=== PATIENT | male | born 1980 | race Caucasian/White ===

== ENCOUNTER 2020-03-23 08:22 | Emergency (ER) | payer BC ==
--- NOTE | 2020-03-23 08:48 | EDM.PDOC ---
ED HPI GENERAL MEDICAL PROBLEM - General Chief Complaint: Skin Complaint Stated Complaint: ? CELLULITIS Time Seen by Provider: 03/23/20 08:48 Source of Information: Reports: Patient History Limitations: Reports: No Limitations - History of Present Illness INITIAL COMMENTS - FREE TEXT/NARRATIVE: Michael, 39-year-old male, noticed significant increase in warmth and swelling to the right calf clayton region today when returning home from work. Works night shifts at [employer], stating he has been working more hours than usual. 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 Has history of chronic cellulitis/wound involvement which he is actively treated and is scheduled for Wednesday at the wound clinic in [facility]. Primary provider Teri Du at the [facility] in [place] He states being on his feet increased amount is likely contributing to this as well. Wound measurements today show significant increase in comparison of 6 cm to which he states if his recall is correct, 51 cm's were both calves measured circumferential on his last visit. He denies any other contributing factors, he is feeling well in general other than this likely cellulitis of the right calf and clayton. Onset: Gradual Duration: Hour(s):, Day(s): Location: Reports: Lower Extremity, Right Quality: Reports: Burning, Pressure Severity: Moderate Improves with: Reports: None Worsens with: Reports: Movement Context: Reports: Activity Associated Symptoms: Reports: No Other Symptoms Right Leg Pain Score (Numeric/FACES): 2 - Related Data Allergies Allergy/AdvReac Type Severity Reaction Status Date / Time No Known Allergies Allergy Verified 03/23/20 08:54 Home Meds: Home Meds Apixaban [Eliquis] 2.5 mg PO BID 03/23/20 [History] Fluticasone/Salmeterol [Advair 100-50] 1 puff INH BID 03/23/20 [History] cephALEXin [Keflex] 500 mg PO TID 7 Days #21 capsule 03/23/20 [Rx] Past Medical History HEENT History: Reports: None Cardiovascular History: Reports: Blood Clots/VTE/DVT Respiratory History: Reports: Asthma, PE Neurological History: Reports: None Dermatologic History: Reports: Cellulitis - Past Imaging History Past Imaging History: Reports: CAT Scan, Ultrasound, Venous Doppler, Xray Social & Family History - Family History Family Medical History: Noncontributory - Caffeine Use Caffeine Use: Reports: Soda ED ROS GENERAL - Review of Systems Review Of Systems: See Below Constitutional: Reports: No Symptoms HEENT: Reports: No Symptoms Respiratory: Reports: No Symptoms Cardiovascular: Reports: No Symptoms Endocrine: Reports: No Symptoms GI/Abdominal: Reports: No Symptoms : Reports: No Symptoms Musculoskeletal: Reports: Leg Pain Skin: Reports: Rash, Erythema, Wound, Change in Color Neurological: Reports: No Symptoms Hematologic/Lymphatic: Reports: No Symptoms Immunologic: Reports: No Symptoms ED EXAM, GENERAL - Physical Exam Exam: See Below Free Text/Narrative:: Alert, oriented, in no acute distress. HEENT negative discharge or deformity. Thorax is clear Cardiac regular somewhat distant heart sounds. Focused examination to the lower extremities show a left lower extremity with no apparent compromise, erythema, nor pain. Circumference of the calf 51 cm Right lower extremity shows erythematous skin, warm to touch, there is areas of what appear to be venous stasis involvement and a fresh dressing applied to the posterior medial calf of which she is seeing wound care in [facility]. This calf measures 57 cm. There is no drainage. There is no pitting edema the dorsum of the foot is not involved with warm dry skin. Pressure sensation is noted to what he attributes similar to previous cellulitis event. Course - Vital Signs Last Recorded V/S: Last Vital Signs Temp 36.2 C 03/23/20 08:45 Pulse 87 03/23/20 08:45 Resp 20 03/23/20 08:45 BP 157/71 H 03/23/20 08:45 Pulse Ox 96 03/23/20 08:45 - Orders/Labs/Meds Labs: Laboratory Tests 03/23/20 03/23/20 Range/Units 08:43 08:43 WBC 8.53 (5.00-10.00) 10^3/uL RBC 5.26 (4.50-6.00) 10^6/uL Hgb 13.6 (13.0-17.0) g/dL Hct 42.9 (40.0-52.0) % MCV 81.6 L (82.0-92.0) fL MCH 25.9 L (27.0-31.0) pg MCHC 31.7 L (32.0-36.0) g/dL RDW 15.7 H (11.5-14.5) % Plt Count 207 (150-400) 10^3/uL MPV 10.1 (7.4-10.4) fL Immature Gran % (Auto) 0.4 (0.0-5.0) % Neut % (Auto) 76.8 H (50.0-70.0) % Lymph % (Auto) 14.0 L (20.0-40.0) % Ripley % (Auto) 6.1 (2.0-8.0) % Eos % (Auto) 2.3 (1.0-3.0) % Baso % (Auto) 0.4 (0.0-1.0) % Neut # (Auto) 6.56 (2.50-7.00) 10^3/uL Lymph # (Auto) 1.19 (1.00-4.00) 10^3/uL Ripley # (Auto) 0.52 (0.10-0.80) 10^3/uL Eos # (Auto) 0.20 (0.10-0.30) 10^3/uL Baso # (Auto) 0.03 (0.00-0.10) 10^3/uL Immature Gran # (Auto) 0.03 (0.00-0.50) 10^3/uL Sodium 139 (136-145) mmol/L Potassium 3.8 (3.3-5.3) mmol/L Chloride 101 (98-115) mmol/L Carbon Dioxide 28.3 (21.0-32.0) mmol/L Anion Gap 13.5 (5-15) mmol/L BUN 12 (6-25) mg/dL Creatinine 0.63 (0.51-1.17) mg/dL Est Cr Clr Drug Dosing 157.42 mL/min Estimated GFR (MDRD) > 60 mL/min Glucose 102 H (75 - 99) mg/dL Calcium 8.6 L (8.7-10.3) mg/dL Total Bilirubin 0.7 (0.2-1.0) mg/dL AST 16 (15-37) U/L ALT 31 (12-78) U/L Alkaline Phosphatase 88 (46-116) IU/L Total Protein 7.8 (6.4-8.2) g/dL Albumin 4.09 (3.00-4.80) g/dL Meds: Medications Discontinued Medications Generic Name Dose Route Start Last Admin Trade Name Enoch PRN Reason Stop Dose Admin Ceftriaxone Sodium 2 gm 03/23/20 08:53 03/23/20 09:06 Rocephin IVPUSH 03/23/20 08:54 2 gm ONETIME ONE Administration - Re-Assessments/Exams Free Text/Narrative Re-Assessment/Exam: 03/23/20 09:44 After reviewing laboratory analysis discussed with Michael, options for treatment, offering return for outpatient cephalexin tomorrow until he can contact clinic on Wednesday, or oral cephalexin. He feels comfortable switching to an oral medication after the initial dosing here in the emergency department today. Given work excuse so he may remain at home with elevation as discussed. Departure - Departure Time of Disposition: 09:26 Disposition: Home, Self-Care 01 Condition: Good Clinical Impression: Cellulitis, Cellulitis of right lower leg, Edema - Discharge Information *PRESCRIPTION DRUG MONITORING PROGRAM REVIEWED*: Not Applicable *COPY OF PRESCRIPTION DRUG MONITORING REPORT IN PATIENT STEFF: Not Applicable Instructions: Cellulitis, Adult Referrals: Teri Du TAX REPRESENTATIVE [Primary Care Provider] - Forms: ED Department Discharge, ED Return to Work/School Form Additional Instructions: 2 g Rocephin administered IV here. Is willing to switch to cephalexin for the remainder of 1 week treatment. Prescription sent to [facility]. Elevate your leg for at least 20 to 30 minutes every 1-2 hours to control swelling and promote circulation. Continue your medications as directed. Wound clinic and primary care provider this coming and Wednesday as scheduled. No work until after wound clinic visit on the . Contact us or return if worsening symptoms over the weekend. Sepsis Event Note (ED) - Focused Exam Vital Signs: Vital Signs Temp Pulse Resp BP Pulse Ox 03/23/20 08:45 36.2 C 87 20 157/71 H 96 - Problem List & Annotations (1) Cellulitis of right lower leg SNOMED Code(s): 017971660 Code(s): L03.115 - CELLULITIS OF RIGHT LOWER LIMB Status: Acute Priority: High Current Visit: Yes (2) Edema SNOMED Code(s): 736976764, 798141713 Code(s): R60.9 - EDEMA, UNSPECIFIED Status: Acute Priority: High Current Visit: Yes Qualifiers: Edema type: unspecified Qualified Code(s): R60.9 - Edema, unspecified - Problem List Review Problem List Initiated/Reviewed/Updated: Yes - Assessment/Plan Plan: 2 g Rocephin administered IV here. Is willing to switch to cephalexin for the remainder of 1 week treatment. Prescription sent to [facility]. Elevate your leg for at least 20 to 30 minutes every 1-2 hours to control swelling and promote circulation. Continue your medications as directed. Wound clinic and primary care provider this coming and Wednesday as scheduled. No work until after wound clinic visit on the . Contact us or return if worsening symptoms over the weekend.
[2020-03-23] MEDS ORDERED: cefTRIAXone 2 GM Vial IVPUSH ONE (08:53)
[2020-03-23 09:11] LABS: ANION GAP 13.5 mmol/L (5-15); CHLORIDE,CL 101 mmol/L (98-115); SODIUM,NA 139 mmol/L (136-145)
[2020-03-23] MEDS ORDERED: Sodium Chloride 0.9% 10 ML Syringe FLUSH PRN (09:24)
== END 2020-03-23 09:45 | disposition home or self-care (01) ==
LOC: KA.ED 08:22
DX: L03.115 Cellulitis of right lower limb (principal); J45.909 Unspecified asthma, uncomplicated; Z86.711 Personal history of pulmonary embolism; Z79.01 Long term (current) use of anticoagulants; Z79.899 Other long term (current) drug therapy; Z86.718 Personal history of other venous thrombosis and embolism
CPT/HCPCS: 80053; 85025; 96374; 99283; J0696; 99284

== ENCOUNTER 2020-09-27 19:43 | Emergency (ER) | payer BC ==
[2020-09-27] MEDS ORDERED: Sodium Chloride 0.9% 1,000 ML IV ONE ×2 (20:14→21:08)
[2020-09-27] MEDS ORDERED: Ondansetron 4 MG/2 ML SDV IVPUSH ONE (20:14)
--- NOTE | 2020-09-27 20:34 | EDM.PDOC ---
ED HPI GENERAL MEDICAL PROBLEM - General Stated Complaint: N/V WEAK Time Seen by Provider: 09/27/20 20:17 Source of Information: Reports: Patient, Family (parents) History Limitations: Reports: No Limitations - History of Present Illness INITIAL COMMENTS - FREE TEXT/NARRATIVE: Patient brought via EMS from his home in [place] where he was too weak to get up from the toilet after diarrhea. He has had diarrhea every 1.5-2 hours and 3-4 episodes of vomiting since 1000 this morning. Last vomiting was now 5 hours ago and last diarrhea about 2 hours ago. Still nauseated. When EMS helped him to his feet he stood there for a minute and didn't get lightheaded or faint. - Related Data Allergies Allergy/AdvReac Type Severity Reaction Status Date / Time No Known Allergies Allergy Verified 09/27/20 20:22 Home Meds: Home Meds Apixaban [Eliquis] 2.5 mg PO BID 03/23/20 [History] Fluticasone/Salmeterol [Advair 100-50] 1 puff INH BID 03/23/20 [History] lisinopriL [Lisinopril] 10 mg PO DAILY 09/27/20 [History] Past Medical History HEENT History: Reports: None Cardiovascular History: Reports: Blood Clots/VTE/DVT Respiratory History: Reports: Asthma, PE Neurological History: Reports: None Dermatologic History: Reports: Cellulitis - Past Imaging History Past Imaging History: Reports: CAT Scan, Ultrasound, Venous Doppler, Xray Social & Family History - Family History Family Medical History: No Pertinent Family History - Caffeine Use Caffeine Use: Reports: Soda Other Caffeine Use: 2 bottles of soda a day. ED ROS GENERAL - Review of Systems Review Of Systems: See Below Constitutional: Reports: Weakness (just last few hours). Denies: Fever, Chills, Malaise HEENT: Reports: No Symptoms Respiratory: Denies: Shortness of Breath, Cough Cardiovascular: Denies: Chest Pain, Lightheadedness, Syncope GI/Abdominal: Reports: Diarrhea, Nausea, Vomiting. Denies: Abdominal Pain : Denies: Dysuria, Flank Pain Musculoskeletal: Reports: No Symptoms Skin: Reports: No Symptoms Neurological: Denies: Confusion, Seizure, Syncope, Trouble Speaking, Difficulty Walking Psychiatric: Denies: Agitation, Anxiety, Confusion ED EXAM, GI/ABD - Physical Exam Exam: See Below Exam Limited By: No Limitations General Appearance: Alert, WD/WN, No Apparent Distress Eyes: Bilateral: Normal Appearance, EOMI Ears: Normal External Exam, Hearing Grossly Normal Nose: Normal Inspection, No Blood Throat/Mouth: Normal Inspection, Normal Lips, Normal Voice, No Airway Compromise Head: Atraumatic, Normocephalic Neck: Normal Inspection, Full Range of Motion Respiratory/Chest: No Respiratory Distress, Lungs Clear, Normal Breath Sounds, No Accessory Muscle Use Cardiovascular: Normal Peripheral Pulses, Regular Rate, Rhythm, No Murmur, Other (he has chronic venous stasis in lower legs) GI/Abdominal Exam: Normal Bowel Sounds, Soft, Non-Tender, No Organomegaly, No Distention, No Abnormal Bruit Back Exam: Normal Inspection, Full Range of Motion. No: CVA Tenderness (L), CVA Tenderness (R) Extremities: Other (Unna boot on right leg for venous stasis ulcer; legs are large but more consistent with his obesity than edema) Neurological: Alert, Oriented, Normal Cognition, No Motor/Sensory Deficits Psychiatric: Normal Affect, Normal Mood Skin Exam: Warm, Dry, Intact, Normal Color, No Rash Course - Vital Signs Last Recorded V/S: Last Vital Signs Temp 101.1 F H 09/27/20 21:42 Pulse 91 09/27/20 21:42 Resp 20 09/27/20 21:42 BP 126/70 09/27/20 21:42 Pulse Ox 93 L 09/27/20 21:42 - Orders/Labs/Meds Orders: Active Orders 24 hr Category Date Time Status BASIC METABOLIC PANEL,BMP [CHEM] Stat Lab 09/27/20 20:00 Received Sodium Chloride 0.9% @ 999 MLS/HR (1000ml) Med 09/27/20 21:08 Ordered Sodium Chloride 0.9% [Normal Saline] 1,000 ml IV .BOLUS Medication Orders Sodium Chloride (Normal Saline) 1,000 mls @ 999 mls/hr IV .BOLUS ONE Stop: 09/27/20 22:08 Last Admin: 09/27/20 21:33 Dose: 999 mls/hr Documented by: MACKENZIE Labs: Laboratory Tests 09/27/20 09/27/20 09/27/20 Range/Units 20:00 20:00 20:10 WBC 10.79 H (5.00-10.00) 10^3/uL RBC 5.48 (4.50-6.00) 10^6/uL Hgb 14.8 (13.0-17.0) g/dL Hct 44.6 (40.0-52.0) % MCV 81.4 L (82.0-92.0) fL MCH 27.0 (27.0-31.0) pg MCHC 33.2 (32.0-36.0) g/dL RDW 15.1 H (11.5-14.5) % Plt Count 170 (150-400) 10^3/uL MPV 10.3 (7.4-10.4) fL Add Manual Diff Yes Neutrophils % (Manual) 88 H (50-70) % Band Neutrophils % 5 (4-12) % Lymphocytes % (Manual) 1 L (20-40) % Monocytes % (Manual) 6 (2-8) % Absolute Neutrophils 10.0347 Lymphocytes # (Manual) 0.1079 Monocytes # (Manual) 0.6474 Platelet Estimate Adequate Sodium 141 (136-145) mmol/L Potassium 4.4 (3.5-5.1) mmol/L Chloride 103 (98-107) mmol/L Carbon Dioxide 22.4 (21.0-32.0) mmol/L Anion Gap 20.0 H (5-15) mmol/L BUN 20 H (7-18) mg/dL Creatinine 0.86 (0.51-1.17) mg/dL Est Cr Clr Drug Dosing 114.18 mL/min Estimated GFR (MDRD) > 60 mL/min Calcium 8.6 L (8.7-10.3) mg/dL Specimen Type Urinvoid Urine Color Yellow (YELLOW) Urine Appearance Slightly cloudy H (CLEAR) Urine pH 5.5 (5.0-9.0) Ur Specific [place] >= 1.030 (1.005-1.030) Urine Protein 30 H (NEGATIVE) mg/dL Urine Glucose (UA) Negative (NEGATIVE) mg/dL Urine Ketones Trace H (NEGATIVE) mg/dL Urine Occult Blood Negative (NEGATIVE) Urine Nitrite Negative (NEGATIVE) Urine Bilirubin Small H (NEGATIVE) Urine Urobilinogen 0.2 (0.2-1.0) E.U./dL Ur Leukocyte Esterase Trace H (NEGATIVE) Urine RBC See note (0-5) /HPF Urine WBC See note (0-5) /HPF Meds: Medications Generic Name Dose Route Start Last Admin Trade Name Enoch PRN Reason Stop Dose Admin Sodium Chloride 1,000 mls @ 999 mls/hr 09/27/20 21:08 09/27/20 21:33 Normal Saline IV 09/27/20 22:08 999 mls/hr .BOLUS ONE Administration Discontinued Medications Generic Name Dose Route Start Last Admin Trade Name Enoch PRN Reason Stop Dose Admin Acetaminophen 500 mg 09/27/20 21:49 Acetaminophen 500 Mg Tab PO 09/27/20 21:50 ONETIME ONE Sodium Chloride 1,000 mls @ 999 mls/hr 09/27/20 20:14 09/27/20 20:18 Normal Saline IV 09/27/20 21:14 999 mls/hr .BOLUS ONE Administration Ondansetron HCl 4 mg 09/27/20 20:14 09/27/20 20:18 Ondansetron 4 Mg/2 Ml Sdv IVPUSH 09/27/20 20:15 4 mg ONETIME ONE Administration Ondansetron HCl 16 mg 09/27/20 21:50 Ondansetron 4 Mg Tab.Dis PO 09/27/20 21:51 ONETIME ONE - Re-Assessments/Exams Free Text/Narrative Re-Assessment/Exam: 09/27/20 21:27 WBC is 10.8 with 88% NE. Waiting on BMP and UA yet. A liter of fluids are in so will run another. Zofran IV was given, nausea is gone. He did give a urine sample a bit ago. The mild leukocytosis is likely due to a combination of his dehydration and vomiting. Will see what UA shows. 09/27/20 21:55 BMP and UA are okay. Patient is feeling back to normal after 1.5 liters of saline. The nurse checked his temp which is 101 now but patient feels fine. Will give him some Tylenol and also some Zofran to take home. Discharged to home in stable condition. Departure - Departure Time of Disposition: 21:51 Disposition: Home, Self-Care 01 Condition: Good Clinical Impression: Dehydration Nausea and vomiting Qualifiers: Vomiting type: unspecified Vomiting Intractability: unspecified Qualified Code(s): R11.2 - Nausea with vomiting, unspecified Diarrhea Qualifiers: Diarrhea type: unspecified type Qualified Code(s): R19.7 - Diarrhea, unspecified - Discharge Information Instructions: Dehydration, Adult, [id number], Diarrhea, Adult, [id number] Referrals: Teri Du, EMERGENCY ROOM SPECIALIST [Primary Care Provider] - Additional Instructions: Drink 8 cups of water daily. Take Zofran as needed for nausea, up to every 8 hours. Take Tylenol 500-1000 mg every 8 hours if needed for fever. Follow up with your PCP on Wednesday if not improving. If worsening return to ER. Sepsis Event Note (ED) - Focused Exam Vital Signs: Vital Signs Temp Temp Pulse Resp BP Pulse Ox 09/27/20 21:42 101.1 F H 91 20 126/70 93 L 09/27/20 20:30 99.6 F 90 20 108/62 94 L 09/27/20 20:24 98.4 F 94 20 108/54 L 94 L 09/27/20 20:15 92 20 125/53 L 94 L 09/27/20 20:00 22 H 108/54 L - My Orders Last 24 Hours: My Active Orders 09/27/20 20:00 BASIC METABOLIC PANEL,BMP [CHEM] Stat 09/27/20 21:08 Sodium Chloride 0.9% @ 999 MLS/HR (1000ml) Sodium Chloride 0.9% [Normal Saline] 1,000 ml IV .BOLUS - Assessment/Plan Last 24 Hours: My Active Orders 09/27/20 20:00 BASIC METABOLIC PANEL,BMP [CHEM] Stat 09/27/20 21:08 Sodium Chloride 0.9% @ 999 MLS/HR (1000ml) Sodium Chloride 0.9% [Normal Saline] 1,000 ml IV .BOLUS
[2020-09-27 21:27] LABS: CHLORIDE,CL 103 mmol/L (98-107); SODIUM,NA 141 mmol/L (136-145)
[2020-09-27] MEDS ORDERED: Acetaminophen 500 MG Tab PO ONE (21:49)
[2020-09-27] MEDS ORDERED: Ondansetron 4 MG Tab.DIS PO ONE (21:50)
== END 2020-09-27 22:20 | disposition home or self-care (01) ==
LOC: KA.ED 19:43
DX: E86.0 Dehydration (principal); R11.2 Nausea with vomiting, unspecified; R19.7 Diarrhea, unspecified; J45.909 Unspecified asthma, uncomplicated; Z86.711 Personal history of pulmonary embolism; Z79.01 Long term (current) use of anticoagulants; Z79.899 Other long term (current) drug therapy; Z86.718 Personal history of other venous thrombosis and embolism
CPT/HCPCS: 36415; 80048; 81001; 85025; 96374; 99284; 99285-25; A9270-GY; J2405; J7030

== ENCOUNTER 2022-02-09 08:06 | Emergency (ER) | payer BC ==
[2022-02-09] MEDS ORDERED: Ciprofloxacin 0.3% Ophth Soln 5 ML Bottle EYELF SCH (09:00)
== END 2022-02-09 09:05 | disposition home or self-care (01) ==
LOC: KA.ED 08:06
DX: S05.02XA Injury of conjunctiva and corneal abrasion without foreign body, left eye, initial encounter (principal); E11.9 Type 2 diabetes mellitus without complications; E66.9 Obesity, unspecified; Z79.01 Long term (current) use of anticoagulants; Z68.30 Body mass index [BMI] 30.0-30.9, adult; Z79.84 Long term (current) use of oral hypoglycemic drugs; Z79.899 Other long term (current) drug therapy
CPT/HCPCS: 99283; A9270-GY